=== PATIENT | male | born 1985 | race Caucasian/White ===

== ENCOUNTER 2017-02-08 13:36 | Emergency (ER) | payer SELFPAY ==
[~2017-02-08] VITALS: Ht 167.6 cm; Wt 68.0 kg
[~2017-02-08 13:36] MED LIST: LORT5TAB PO; PROM25SU8 PO; Z.0.NO CURRENT MEDS
[2017-02-08 13:37] VITALS: BP 129/83; PULSE 110; RESP 15; TEMP 98.4; O2SAT 98
[2017-02-08 13:44] VITALS: PULSE 90
[2017-02-08] MEDS ORDERED: CEPH-460 PO (14:12)
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
[2017-02-08] MEDS ORDERED: CEPHALEXIN MONOHYDRATE 500 MG CAP PO ONE (14:15)
[2017-02-08] MEDS ORDERED: TETANUS/DIPHTHERIA TOXOID ADULT 0.5 ML VIAL IM ONE (14:15)
== END 2017-02-08 14:37 | disposition home or self-care (01) ==
LOC: EDTENT 13:36
DX: S61.011A Laceration without foreign body of right thumb without damage to nail, initial encounter (principal); F17.200 Nicotine dependence, unspecified, uncomplicated; Z23 Encounter for immunization; W25.XXXA Contact with sharp glass, initial encounter
CPT/HCPCS: 12001; 90471; 90714